=== PATIENT | male | born 1995 | race African-American/Black ===

== ENCOUNTER 2017-02-12 22:00 | Emergency (ER) | payer OTHER ==
[2017-02-12] MEDS ORDERED: AMOXIL SUSP 100 ML BTL (250 MG/5 ML) PO ONE (22:03)
[2017-02-12] MEDS ORDERED: DEMEROL INJ IVP ONE (22:05)
[2017-02-12 22:07] VITALS: BMI 24.2
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
[2017-02-12] MEDS ORDERED: ZOFRAN INJ 4 MG VIAL IVP ONE (22:10)
[2017-02-12] MEDS ORDERED: ZOFRAN INJ 4 MG VIAL ONE (22:12)
[2017-02-12] MEDS ORDERED: DEMEROL INJ ONE (22:13)
[2017-02-12] MEDS ORDERED: AMOXIL SUSP 1 DOSE 250 MG/5 ML (E.R. DEPT) ONE (22:14)
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
[2017-02-12 23:05] VITALS: BP 140/74
== END 2017-02-12 23:23 | disposition hospice, inpatient (51) ==
LOC: ER 22:00
DX: S01.511A Laceration without foreign body of lip, initial encounter (principal); W54.0XXA Bitten by dog, initial encounter; Y92.89 Other specified places as the place of occurrence of the external cause
CPT/HCPCS: 70486; 72125; 96365; 96374; 96375; 99283; 99285; A4222; J2175; J2405